=== PATIENT | female | born 1955 | race Asian ===

== ENCOUNTER → 2024-02-17 | Day surgery (SDC) | payer MEDICARE, OTHER ==
[~2024-02-17] VITALS: Ht 157.5 cm; Wt 58.2 kg
[~2024-02-17] MED LIST: AMLO-383 PO; CHOL200074 PO; CHONDR SULF A SOD/HYALURONATE 1.05 ML KIT IO ONE; FentaNYL CITRATE PF 100 MCG/2 ML VIAL ONE; KETOROLAC TROMETHAMINE 0.5% 5 ML OPHTHALMIC SOLUTION ONE; MIDAZOLAM HCL 2 MG/2 ML VIAL ONE; MOXIFLOXACIN HCL 0.5% 3 ML OPHTHALMIC SOLUTION ONE; PHENYLEPHRINE HCL 2.5% 2 ML OPHTHALMIC SOLUTION ONE; RINGERS SOLUTION,LACTATED 500 ML IV ONE; ROSU40TA88 PO; TETRACAINE HCL/PF 0.5% 4 ML OPHTHALMIC SOLUTION ONE; TROPICAMIDE 1% 2 ML OPHTHALMIC SOLUTION ONE
[2024-02-17] MEDS: TROPICAMIDE 1% 2 ML OPHTHALMIC SOLUTION OD SCH (07:48)
[2024-02-17] MEDS: PHENYLEPHRINE HCL 2.5% 2 ML OPHTHALMIC SOLUTION OD SCH (07:48)
[2024-02-17] MEDS: MOXIFLOXACIN HCL 0.5% 3 ML OPHTHALMIC SOLUTION OD SCH (07:48)
[2024-02-17] MEDS: KETOROLAC TROMETHAMINE 0.5% 5 ML OPHTHALMIC SOLUTION OD SCH (07:51)
[2024-02-17] MEDS: RINGERS SOLUTION,LACTATED 500 ML IV ONE (08:17)
[2024-02-17] MEDS: LIDOCAINE/PF 1% 2 ML VIAL ONE (09:15)
[2024-02-17] MEDS: BALANCED SALT 15 ML OPHTHALMIC IRRIG.SOLN ONE (09:15)
[2024-02-17] MEDS: POVIDONE-IODINE 5% 30 ML OPHTHALMIC SOLUTION ONE (09:20)
[2024-02-19] MEDS: EPINEPHrine 1:1,000 [1 MG/ML] VIAL ONE (09:15)
== END | disposition still patient (30) ==
LOC: SURGERY 07:14
PROVIDERS: ATTEND Ophthalmology
DX: H25.11 Age-related nuclear cataract, right eye (principal); R94.31 Abnormal electrocardiogram [ECG] [EKG]; Z79.899 Other long term (current) drug therapy; Z90.710 Acquired absence of both cervix and uterus
CPT/HCPCS: 93005; 66984; J7321; J0171; J3010; J3490; J2250; J7120; V2632